=== PATIENT | female | born 1955 | race Hispanic/Latino ===

== ENCOUNTER → 2019-02-20 | Outpatient (CLI) | payer BC ==
[~2019-02-20] MED LIST: PANTOPRAZOLE SO40 MG PO
--- NOTE | 2019-02-20 15:16 | Diagnostic Imaging Report ---
Abdominal ultrasound. History: Right quadrant abdominal pain Comparison: 12/15/2016. Discussion: Transverse and longitudinal images of the abdomen were obtained demonstrating a liver of normal size and echogenicity measuring 11.7 cm in length. The portal vein is patent with hepatopetal flow and is within normal limits measuring 6 mm in diameter. The biliary tree is within normal limits with the common bile duct measuring 3 mm in diameter. The gallbladder is normal without evidence of stones, wall thickening, or pericholecystic fluid. The sonographic Garcia's sign was negative. The kidneys are normal in size and echogenicity bilaterally without evidence of hydronephrosis, stones, or mass. The right kidney measures 8.5 x 3.5 x 4.2 cm and the left kidney measures 10.1 x 4.0 x 4.6 cm. The spleen is normal in size and appearance measuring 8.9 x 3.6 x 3.3 cm. The pancreatic <head and body> are visualized and are normal in appearance. The abdominal aorta is within normal limits. The IVC is patent. There is no evidence of free fluid. IMPRESSION: Normal abdominal ultrasound. Signed by: Dr. Wilbert Guzman DO on 02/20/2019 3:13 PM
== END ==
LOC: US 12:56
PROVIDERS: ATTEND Family Medicine
DX: R10.11 Right upper quadrant pain (principal)
CPT/HCPCS: 76700